=== PATIENT | female | born 1985 | race Caucasian/White ===

== ENCOUNTER 2020-12-13 02:28 | Inpatient (IN) | payer OTHER, SELFPAY ==
--- NOTE | ~2020-12-13 | US_ITS ---
EXAMINATION: US ABDOMEN LIMITED CLINICAL INFORMATION: RUQ/Epigastric Pain. COMPARISON: None TECHNIQUE: Real-time imaging of the right upper quadrant abdominal viscera. FINDINGS: PANCREAS: Normal. LIVER: The liver is normal in size. The liver contour is normal. Parenchymal echogenicity is normal. There is a 1.9 cm homogeneously echogenic focus in the right hepatic lobe superiorly and posteriorly, likely segment 7, most consistent with a hemangioma. There is no intrahepatic biliary duct dilatation seen. GALLBLADDER: A 2 cm calculus is impacted in the gallbladder neck. There is a second calculus measuring 1.6 cm is in diameter near the fundus. Gallbladder wall is borderline thickened (4 mm). There is mild focal tenderness in the region of the gallbladder, per the technologist. No pericholecystic fluid. COMMON BILE DUCT: Normal in caliber measuring 0.4 cm in diameter. RIGHT KIDNEY: Normal. No hydronephrosis. No renal calculi or focal parenchymal lesions. The kidney measures 10.6 cm in maximum dimension. FREE FLUID: None. US/US abdomen limited IMPRESSION: Cholelithiasis with an impacted stone at the bladder neck and borderline wall thickening. Given the presence of tenderness at the gallbladder, these findings are concerning for mild or early acute cholecystitis. A 1.9 cm hemangioma in the right hepatic lobe.
[2020-12-13 02:38] VITALS: BP 163/102; PULSE 68; RESP 18; TEMP 36.3; O2SAT 99; BMI 26.6
--- NOTE | 2020-12-13 03:34 | ED.ABDPAIN ---
HPI - Abdominal Pain General Chief Complaint: Abdominal Pain Stated Complaint: ABD pain/vomiting Time Seen by Provider: 12/13/20 03:33 Source: patient Mode of arrival: ambulatory History of Present Illness HPI narrative: 35-year-old female without significant past medical history presents with 2 weeks of consistent right upper quadrant / epigastric pain that typically starts at approximately 2:00 a.m. in the morning, crampy in nature, radiating between right upper quadrant and epigastric area associated with nausea and multiple episodes of nonbloody vomiting. Pain is rated as 10/10 and is worsened by laying back. Otherwise, she denies any fever, chills, diarrhea, urinary pain / burning/ frequency and is currently on her menstrual cycle. She denies any abdominal surgical history. Related Data Allergies Allergy/AdvReac Type Severity Reaction Status Date / Time No Known Allergies Allergy Verified 12/13/20 02:38 Review of Systems Review of Systems Pertinent positives and negatives as stated in HPI 10 point review of systems is otherwise negative. Physical Exam Vital Signs: Vital Signs: Last Vital Signs Temp 97.4 F 12/13/20 02:38 Pulse 68 12/13/20 02:38 Resp 18 12/13/20 02:38 BP 163/102 H 12/13/20 02:38 Pulse Ox 99 12/13/20 02:38 Body Mass Index 26.6 VITAL SIGNS: Reviewed. GENERAL: Well developed, well nourished, in no acute distress. HEAD: Normocephalic/atraumatic EYES: PERRLA, EOMI LUNGS: Normal breath sounds. No adventitious sounds or accessory muscle use. SpO2<99> CARDIOVASCULAR: Regular rate and rhythm without noted murmurs ABDOMEN: Soft, Pain on palpation at the right upper quadrant, Mccullough's positive, no rebound, non-distended with bowel sounds. SKIN: Inspection of the skin reveals no rashes, ulcerations, jaundice, pallor, or petechiae. NEUROLOGIC: Alert and oriented x 4. Strength and sensation to light touch were grossly intact x 4. Course Course Course Narrative: 35-year-old female with history and clinical presentation suggestive of possible cholecystitis, pancreatitis, and less likely renal colic/ pyelonephritis. On review of all investigations there is an impacted stone in the neck of the gallbladder, this case was discussed with the general surgeon who is agreeable for admission and patient was informed of all results and findings and understands that she will be admitted for plans of gallbladder removal. MDM - Abdominal Pain Lab Data Result diagrams: 12/13/20 04:06 12/13/20 04:06 Labs: Lab Results 12/13/20 12/13/20 12/13/20 Range/Units 04:06 04:06 04:06 WBC 9.2 (4.8-10.8) X10*3/uL RBC 3.94 L (4.20-5.50) X10*6/uL Hgb 12.7 (12.0-16.0) g/dl Hct 38.1 (37-47) % MCV 96.7 (80-98) fL MCH 32.2 (27.0-33.0) pg MCHC 33.3 (31.0-35.0) g/dl RDW 12.2 (11.0-16.0) % Plt Count 302 (160-400) X10*3/uL MPV 9.8 (9.4-12.3) fL Immature Gran % (Auto) 0.2 (0.0-0.4) % Neut % (Auto) 70.6 (45-73) % Lymph % (Auto) 22.5 (20-40) % [place] % (Auto) 4.6 (2-11) % Eos % (Auto) 1.2 (0-4) % Baso % (Auto) 0.9 (0-2) % Lymph # (Auto) 2.1 (1.2-4.9) X10*3/uL [place] # (Auto) 0.4 (0.1-1.2) X10*3/uL Eos # (Auto) 0.1 (0.0-0.4) X10*3/uL Baso # (Auto) 0.1 (0.0-0.2) X10*3/uL Abs Immat Gran (auto) 0.02 (0.00-0.03) X10*3/uL Absolute Neuts (auto) 6.5 (2.0-8.3) X10*3/uL Absolute Nucleated RBC 0.000 (0.0-0.012) X10*3/uL Nucleated RBC % (auto) 0.0 (0.0-0.2) /100WBC Hold Blue Top SEE NOTE Sodium 141 (135-145) mmol/L Potassium 3.9 (3.3-5.1) mmol/L Chloride 106 (96-108) mmol/L Carbon Dioxide 23 (22-29) mmol/L Anion Gap 16 (12-20) BUN 9 (9-16) mg/dL Creatinine 0.90 (0.5-1.4) mg/dL Estim Creat Clear Calc 86.2 Estimated GFR > 60 Random Glucose 109 (60-115) mg/dL Calcium 9.6 (8.4-10.2) mg/dL Total Bilirubin 0.5 (0.0-1.0) mg/dL AST 16 (5-31) U/L ALT 13 (0-31) U/L Alkaline Phosphatase 53 (39-117) U/L Total Protein 7.3 (6.5-8.0) g/dL Albumin 4.4 (3.5-5.0) g/dL Lipase 29 (8-78) U/L Urine Color Urine Appearance Urine pH (5.0-8.0) Ur Specific [place] (1.005-1.025) Urine Protein (NEG-TRACE) MG/DL Urine Glucose (UA) (NEG) MG/DL Urine Ketones (NEG) MG/DL Urine Blood (NEG) Urine Nitrite (NEG) Ur Leukocyte Esterase (NEG) Urine RBC (0) /HPF Urine WBC (0-4) /HPF Ur Squamous Epith Cells /LPF Urine Bacteria /LPF Urine Mucus /LPF Urine Test (NEGATIVE) 12/13/20 12/13/20 Range/Units 04:06 04:06 WBC (4.8-10.8) X10*3/uL RBC (4.20-5.50) X10*6/uL Hgb (12.0-16.0) g/dl Hct (37-47) % MCV (80-98) fL MCH (27.0-33.0) pg MCHC (31.0-35.0) g/dl RDW (11.0-16.0) % Plt Count (160-400) X10*3/uL MPV (9.4-12.3) fL Immature Gran % (Auto) (0.0-0.4) % Neut % (Auto) (45-73) % Lymph % (Auto) (20-40) % [place] % (Auto) (2-11) % Eos % (Auto) (0-4) % Baso % (Auto) (0-2) % Lymph # (Auto) (1.2-4.9) X10*3/uL [place] # (Auto) (0.1-1.2) X10*3/uL Eos # (Auto) (0.0-0.4) X10*3/uL Baso # (Auto) (0.0-0.2) X10*3/uL Abs Immat Gran (auto) (0.00-0.03) X10*3/uL Absolute Neuts (auto) (2.0-8.3) X10*3/uL Absolute Nucleated RBC (0.0-0.012) X10*3/uL Nucleated RBC % (auto) (0.0-0.2) /100WBC Hold Blue Top Sodium (135-145) mmol/L Potassium (3.3-5.1) mmol/L Chloride (96-108) mmol/L Carbon Dioxide (22-29) mmol/L Anion Gap (12-20) BUN (9-16) mg/dL Creatinine (0.5-1.4) mg/dL Estim Creat Clear Calc Estimated GFR Random Glucose (60-115) mg/dL Calcium (8.4-10.2) mg/dL Total Bilirubin (0.0-1.0) mg/dL AST (5-31) U/L ALT (0-31) U/L Alkaline Phosphatase (39-117) U/L Total Protein (6.5-8.0) g/dL Albumin (3.5-5.0) g/dL Lipase (8-78) U/L Urine Color YELLOW Urine Appearance HAZY Urine pH 6.0 (5.0-8.0) Ur Specific [place] <= 1.005 (1.005-1.025) Urine Protein NEG (NEG-TRACE) MG/DL Urine Glucose (UA) NEG (NEG) MG/DL Urine Ketones NEG (NEG) MG/DL Urine Blood 1+ H (NEG) Urine Nitrite NEG (NEG) Ur Leukocyte Esterase NEG (NEG) Urine RBC 1-4 (0) /HPF Urine WBC 0-2 (0-4) /HPF Ur Squamous Epith Cells 3+ /LPF Urine Bacteria NONE /LPF Urine Mucus TRACE /LPF Urine Test NEGATIVE (NEGATIVE) Discharge Plan Discharge Clinical Impression: Acute cholecystitis Patient Disposition: Admitted As Inpatient [facility] Past Medical History Source: nursing notes reviewed Social History Social History Advance Directives: No Advance Directives Information Provided: No
[2020-12-13] MEDS: Acetaminophen 325 MG TABLET 975 MG PO (03:59)
[2020-12-13] MEDS: Ketorolac Tromethamine 15 MG/ML VIAL IVPUSH (03:59)
[2020-12-13] MEDS: ondansetron HCL 4 MG/2 ML VIAL IVPUSH (03:59)
[2020-12-13] MEDS: 0.9 % Sodium Chloride 1,000 ML 999 ML IV (04:05)
[2020-12-13 04:15] LABS: MANUAL DIFF FLAG NO
[2020-12-13 04:16] LABS: Basophils Absolute Auto 0.1 X10*3/uL (0.0-0.2); Basophils Percent Auto 0.9 % (0-2); Eosinophils Absolute Auto 0.1 X10*3/uL (0.0-0.4); Eosinophils Percent Auto 1.2 % (0-4); Hematocrit 38.1 % (37-47); Hemoglobin 12.7 g/dl (12.0-16.0); Imm Gran Abs Auto 0.02 X10*3/uL (0.00-0.03); Imm Gran Pct Auto 0.2 % (0.0-0.4); Lymphocytes Absolute Auto 2.1 X10*3/uL (1.2-4.9); Lymphocytes Percent Auto 22.5 % (20-40); Mean Corpuscular HGB Conc 33.3 g/dl (31.0-35.0); Mean Corpuscular Hemoglobin 32.2 pg (27.0-33.0); Mean Corpuscular Volume 96.7 fL (80-98); Mean Platelet Volume 9.8 fL (9.4-12.3); Monocytes Absolute Auto 0.4 X10*3/uL (0.1-1.2); Monocytes Percent Auto 4.6 % (2-11); Neutrophils Absolute Auto 6.5 X10*3/uL (2.0-8.3); Neutrophils Percent Auto 70.6 % (45-73); Platelet Count 302 X10*3/uL (160-400); Red Blood Count 3.94 X10*6/uL (4.20-5.50); Red Cell Distribution Width 12.2 % (11.0-16.0); White Blood Count 9.2 X10*3/uL (4.8-10.8)
[2020-12-13 04:25] LABS: Glucose Urine UA NEG (NEG); Leukocyte Esterase Urine NEG (NEG); Nitrite Urine NEG (NEG); Specific Gravity - Urine <= 1.005 (1.005-1.025); Urine Blood 1+ (NEG); Urine Ketones NEG (NEG); Urine Protein NEG (NEG-TRACE)
[2020-12-13 04:28] LABS: Appearance Urine HAZY; Color Urine YELLOW; UPreg QC Valid YES; Urine Pregnancy NEGATIVE (NEGATIVE)
[2020-12-13 04:39] LABS: Alanine Aminotransferase 13 U/L (0-31); Albumin Level 4.4 g/dL (3.5-5.0); Alkaline Phosphatase 53 U/L (39-117); Anion Gap 16 (12-20); Aspartate Amino Transferase 16 U/L (5-31); Bilirubin Total 0.5 mg/dL (0.0-1.0); Blood Urea Nitrogen 9 mg/dL (9-16); Calcium 9.6 mg/dL (8.4-10.2); Carbon Dioxide 23 mmol/L (22-29); Chloride 106 mmol/L (96-108); Creatinine Clr Calc Pharmacy 86.2; Estimated Glomerular Filt Rate > 60; Glucose Random 109 mg/dL (60-115); Lipase 29 U/L (8-78); Potassium 3.9 mmol/L (3.3-5.1); Sodium 141 mmol/L (135-145); Total Protein 7.3 g/dL (6.5-8.0)
[2020-12-13 05:02] LABS: Mucus Urine TRACE /LPF; Squamous Epithelial Cell Urine 3+ /LPF; WBC Urine 0-2 /HPF (0-4)
[2020-12-13 05:48] VITALS: BP 126/76; PULSE 73; RESP 16; O2SAT 97
[2020-12-13 06:12] LABS: COVID-19 Test Negative (Negative)
--- NOTE | 2020-12-13 06:30 | PC.NURSE ---
REPORT FROM ARJUN AT 05:30.
[2020-12-13 06:59] VITALS: BP 119/67; PULSE 65; RESP 18; O2SAT 98
[2020-12-13] MEDS: Dextrose 5 % and Lactated Ring 1,000 ML 125 ML IVCONT (07:02)
--- NOTE | 2020-12-13 07:05 | PC.NURSE ---
PT RESTING IN THE STRETCHER, DENIES PAIN/NAUSEA AT THIS. PT AWARE OF PLAN TO ADMI AND NPO WELL. ABX RUNNING BUT THE DETROSE 5% LR FLUIDS ARE NOT RUNNING AT THIS TIME BECAUSE IT IS NOT COMPATIBLE WITH THE ABX
[2020-12-13] MEDS: Piperacillin Sodium/Tazobactam 3.375 GM in 0.9 % Sodium Chloride 50 ML IV (07:07)
[2020-12-13] MEDS: 0.9 % Sodium Chloride Flush 3 ML SYRINGE IVFLUSH (07:58)
--- NOTE | 2020-12-13 08:49 | P.CONGS_ITS ---
History of Present Illness Consult details Consult date: 12/13/20 Narrative: 35F otherwise healthy, came to the ED around 2 AM because of upper abdominal pain. She states this was severe and started around midnight. She says she had a heavy meal of fatty food from [employer] last night which she normally does not eat. She describes some nausea from the pain without vomitting. She denies any previous similar problems. She says the pain lasted about 2 hours. She currently says she is pain free. She denies other GI complaints. Review of Systems Constitutional: Constitutional: Denies chills and Denies fever(s) Cardiovascular: Cardiovascular: Denies chest pain, Denies dyspnea and Denies dyspnea on exertion Respiratory: Respiratory: Denies cough, Denies dyspnea and Denies dyspnea on exertion Gastrointestinal: Gastrointestinal: Denies hematochezia and Denies change in bowel habits Genitourinary: Genitourinary: Denies hematuria Musculoskeletal: Musculoskeletal: Denies back pain and Denies limited range of motion Neurologic: Denies focal weakness and Denies convulsions Psychiatric: Psychiatric: Denies depression and Denies mood swings [facility] Past Medical History Medical History (Updated 12/21/20 @ 00:01 by Andrea Watson) Gallstones No active medical problems Social History Social History Patient Tobacco Use Status: Former Tobacco user Use of substances other than those prescribed or required for medical reasons: Yes Substance Use Type: Marijuana Substance Use Frequency: Daily Advance Directives: No Advance Directives Information Provided: No Meds Allergies Allergy/AdvReac Type Severity Reaction Status Date / Time No Known Allergies Allergy Verified 12/13/20 02:38 Active Medications: Current Medications Generic Name Dose Route Start Last Admin Trade Name Freq PRN Reason Stop Dose Admin Hydromorphone HCl 0.5 mg 12/13/20 06:26 Hydromorphone Hcl 0.5 Mg/0.5 Ml Syringe IVPUSH Q4H PRN Pain, Severe (Pain Scale 7-10) Acetaminophen 1,000 mg in 100 mls @ 400 mls/hr 12/13/20 07:00 12/13/20 07:57 Ofirmev IV Not Given Q6H SWATHI Dextrose/Lactated Ringer's 1,000 mls @ 125 mls/hr 12/13/20 06:26 12/13/20 07:02 D5lr IVCONT 125 mls/hr .Q8H SWATHI Administration Piperacillin Sod/Tazobactam 50 mls @ 100 mls/hr 12/13/20 07:00 12/13/20 07:54 Sod 3.375 gm/ Sodium Chloride IV Infused Q6H SWATHI Infusion Ondansetron HCl 4 mg 12/13/20 06:26 Ondansetron Hcl 4 Mg/2 Ml Vial IVPUSH QID PRN Nausea Oxycodone HCl 5 mg 12/13/20 06:26 Oxycodone Hcl Immed Release 5 Mg Tablet PO Q6H PRN Pain, Moderate (Pain Scale 4-6 Sodium Chloride 3 ml 12/13/20 08:00 12/13/20 07:58 0.9 % Sodium Chloride Flush 3 Ml Syringe IVFLUSH 3 ml QSHIFT SWATHI Administration Zolpidem Tartrate 5 mg 12/13/20 06:26 Zolpidem Tartrate 5 Mg Tablet PO BEDTIME PRN Insomnia Home Medications Medication Instructions Recorded Confirmed Last Taken Type No Known Home Meds 12/13/20 12/13/20 Unknown History Physical Exam Vital Signs: Vital Signs: Last Vital Signs Temp 97.4 F 12/13/20 02:38 Pulse 65 12/13/20 06:59 Resp 18 12/13/20 06:59 BP 119/67 12/13/20 06:59 Pulse Ox 98 12/13/20 06:59 Body Mass Index 26.6 Const: General: comfortable and no acute distress Orientation/consciousness: patient oriented x3 Neck: Neck: Yes no lymphadenopathy Resp: Auscultation: clear to auscultation bilaterally Cardio: Rhythm: regular rhythm GI: Other: no Mccullough's sign Palpation (GI): Soft to palpation, nontender and no guarding Neuro: General: patient oriented x3 Results Labs Result diagrams: 12/13/20 04:06 12/13/20 04:06 Labs: Abnormal lab results 12/13/20 12/13/20 Range/Units 04:06 04:06 RBC 3.94 L (4.20-5.50) X10*6/uL Urine Blood 1+ H (NEG) Short CBC 12/13/20 Range/Units 04:06 WBC 9.2 (4.8-10.8) X10*3/uL Hgb 12.7 (12.0-16.0) g/dl Hct 38.1 (37-47) % Plt Count 302 (160-400) X10*3/uL BMP 12/13/20 04:06 Sodium 141 Potassium 3.9 Chloride 106 Carbon Dioxide 23 BUN 9 Creatinine 0.90 Calcium 9.6 Liver Function 12/13/20 Range/Units 04:06 Total Bilirubin 0.5 (0.0-1.0) mg/dL AST 16 (5-31) U/L ALT 13 (0-31) U/L Alkaline Phosphatase 53 (39-117) U/L Albumin 4.4 (3.5-5.0) g/dL Urine 12/13/20 12/13/20 Range/Units 04:06 04:06 Urine Color YELLOW Urine Appearance HAZY Urine pH 6.0 (5.0-8.0) Ur Specific [place] <= 1.005 (1.005-1.025) Urine Protein NEG (NEG-TRACE) MG/DL Urine Glucose (UA) NEG (NEG) MG/DL Urine Test NEGATIVE (NEGATIVE) All other labs normal. Imaging Abdominal ultrasound report/results: report reviewed and image reviewed Assessment and Plan (1) Gallstones: Status: Acute She came in with severe upper abdominal pain this morning. Her US shows a gallstone that may be impacted at the neck. She says has been pain free since getting pain meds at 2 a.m. She is not tender on exam. She does not have le ukocytosis and her LFTs are within normal. I explained to her that her pain episode was likely from her gallstone. I discussed with her the option of proceeding with cholecystectomy. I explained the technique of laparoscopic cholecystectomy and open cholecystectomy. I reviewed the risks including but not limited to bleeding, infections, injury to bowel/liver/bile ducts, as well as the benefits and alternatives. She states she does not want to proceed with surgery at this time. She stated that she wanted to be discharged home as she is completely pain free. After a lengthy discussion, I was able to convince her to stay to be observed as she may have recurrence of pain immediately even if her overall clinical picture does not strongly suggest cholecystitis. I told her that she may still have episodes of pain from her gallbladder. She says she understands but states may decide to have surgery in the future if she feels she has recurrent issues. I will start her on clear liquids and reexamine her later today.
--- NOTE | 2020-12-13 09:32 | PC.NURSE ---
pt reports that hse wants to go home, does not want to be admitted. this rn triggered dr perez about this imformation
--- NOTE | 2020-12-13 09:40 | PM.EVENT ---
Event Note Date of Service: 12/13/20 Event Note: informed by ED staff that pt wanted to leave I explained possible consequences to pt - recurrent pain, cholecystitis she says she is completely pain free she says she will ffup in office she says she understands implications of her decision
--- NOTE | 2020-12-13 10:25 | MHC.CM.PN ---
Patient left AMA before being seen by case management.
--- NOTE | 2020-12-17 09:52 | PM.DS ---
DS: Providers Provider Date of Service: 12/13/20 Date of admission: 12/13/20 05:37 Primary care physician: Unknown Physician DS: Diagnosis Discharge Diagnosis (1) Gallstones: Status: Acute DS: Medications Discharge Medications Home Medications: Home Medications Medication Instructions Recorded Confirmed No Known Home Meds 12/13/20 12/13/20 DS: Summary Hospital Course Hospital Course: [age] year female admitted in the ER for gallstones on 12/13/2020. She had described pain on the right a upper quadrant and epigastric area. However, in the ER, when seen by myself, she stated that she wanted to leave against medical advice. She was completely asymptomatic at the time. She refused admission for a question of cholecystitis with a gallstone in the neck of the gallbladder. She understood the implications of her decision then. Time Spent with Patient Time attestation: Total time spent providing and/or coordinating discharge services: Discharge coordination time: Less than 30 minutes Quality: Stroke Does the patient have a stroke diagnosis?: No Physical Exam Vital Signs: Vital Signs: Last Vital Signs Temp 97.4 F 12/13/20 02:38 Pulse 65 12/13/20 06:59 Resp 18 12/13/20 06:59 BP 119/67 12/13/20 06:59 Pulse Ox 98 12/13/20 06:59 Body Mass Index 26.6 Const: General: comfortable and no acute distress Orientation/consciousness: patient oriented x3 Neck: Neck: Yes no lymphadenopathy Resp: Auscultation: clear to auscultation bilaterally Cardio: Rhythm: regular rhythm GI: Palpation (GI): Soft to palpation, nontender and no guarding Neuro: General: patient oriented x3 Discharge Plan Discharge Patient Disposition: Left Against Medical Advice Discharge Diagnosis: gallstones Referrals: Physician,Unknown [Primary Care Provider] - 1 Week Discharge Medications: No Action No Known Home Meds RF: 0 Discharge Orders: Discharge Order (Routine); Ordered 12/13/20 Ordered By: Paul Galvez Diet: low fat, low cholesterol Activity Restrictions/Additional Instructions: call office for ffup - [phone] low fat diet Care Plan Goals: ffup for gallbladder problems Health Concerns: gallstones Plan of Treatment: she say she will ffup as outpt Assessment: stable, asymptomatic Discharge Date/Time: 12/13/20 09:59
--- NOTE | 2020-12-24 12:47 | PM.HPGS ---
History of Present Illness History of Present Illness Date of Service: 12/24/20 Chief complaint: Acute Cholecystitis Narrative: 35F otherwise healthy, came to the ED around 2 AM because of upper abdominal pain. She states this was severe and started around midnight. She says she had a heavy meal of fatty food from [employer] last night which she normally does not eat. She describes some nausea from the pain without vomitting. She denies any previous similar problems. She says the pain lasted about 2 hours. She currently says she is pain free. She denies other GI complaints. Review of Systems Constitutional: Constitutional: Denies chills and Denies fever(s) Cardiovascular: Cardiovascular: Denies chest pain, Denies dyspnea and Denies dyspnea on exertion Respiratory: Respiratory: Denies cough, Denies dyspnea and Denies dyspnea on exertion Gastrointestinal: Gastrointestinal: Denies hematochezia and Denies change in bowel habits Genitourinary: Genitourinary: Denies hematuria Musculoskeletal: Musculoskeletal: Denies back pain and Denies limited range of motion Neurologic: Denies focal weakness and Denies convulsions Psychiatric: Psychiatric: Denies depression and Denies mood swings [facility] Past Medical History Medical History (Updated 12/21/20 @ 00:01 by Andrea Watson) Gallstones No active medical problems Social History Social History Patient Tobacco Use Status: Former Tobacco user Use of substances other than those prescribed or required for medical reasons: Yes Substance Use Type: Marijuana Substance Use Frequency: Daily Advance Directives: No Advance Directives Information Provided: No Meds Allergies Allergy/AdvReac Type Severity Reaction Status Date / Time No Known Allergies Allergy Verified 12/13/20 02:38 Home Medications Medication Instructions Recorded Confirmed Last Taken Type No Known Home Meds 12/13/20 12/13/20 Unknown History Physical Exam Vital Signs: Vital Signs: Last Vital Signs Temp 97.4 F 12/13/20 02:38 Pulse 65 12/13/20 06:59 Resp 18 12/13/20 06:59 BP 119/67 12/13/20 06:59 Pulse Ox 98 12/13/20 06:59 Body Mass Index 26.6 Const: General: comfortable and no acute distress Orientation/consciousness: patient oriented x3 Neck: Neck: Yes no lymphadenopathy Resp: Auscultation: clear to auscultation bilaterally Cardio: Rhythm: regular rhythm GI: Other: no Mccullough's sign Palpation (GI): Soft to palpation, nontender and no guarding Neuro: General: patient oriented x3 Results Results Labs: Hg 12.7 WBC 9.2 Na 141 K 3.9 BUN/Crea 9/.9 bili 0.5 AST/ALT 16/13 alk phos 53 US - gallstone at the neck Urine 12/13/20 12/13/20 Range/Units 04:06 04:06 Urine Color YELLOW Urine Appearance HAZY Urine pH 6.0 (5.0-8.0) Ur Specific [place] <= 1.005 (1.005-1.025) Urine Protein NEG (NEG-TRACE) MG/DL Urine Glucose (UA) NEG (NEG) MG/DL Urine Test NEGATIVE (NEGATIVE) Assessment and Plan (1) Gallstones: Status: Acute She came in with severe upper abdominal pain this morning. Her US shows a gallstone that may be impacted at the neck. She says has been pain free since getting pain meds at 2 a.m. She is not tender on exam. She does not have leukocytosis and her LFTs are within normal. I explained to her that her pain episode was likely from her gallstone. I discussed with her the option of proceeding with cholecystectomy. I explained the technique of laparoscopic cholecystectomy and open cholecystectomy. I reviewed the risks including but not limited to bleeding, infections, injury to bowel/liver/bile ducts, as well as the benefits and alternatives. She states she does not want to proceed with surgery at this time. She stated that she wanted to be discharged home as she is completely pain free. After a lengthy discussion, I was able to convince her to stay to be observed as she may have recurrence of pain immediately even if her overall clinical picture does not strongly suggest cholecystitis. I told her that she may still have episodes of pain from her gallbladder. She says she understands but states may decide to have surgery in the future if she feels she has recurrent issues. I will start her on clear liquids and reexamine her later today. Quality Stroke Does the patient have a stroke diagnosis?: No VTE Prior VTE?: No VTE Risk Level:: Surgical - low VTE Device Contraindication: N/A - Device Ordered VTE Drug Contraindication: Treatment Not Indicated Procedures Date of Service Date of Service: 12/13/20
== END 2020-12-13 09:59 | disposition left against medical advice (07) ==
LOC: HO.ED 05:34 → HO.EDOVER 06:27
PROVIDERS: Admitting Provider Internal Medicine; Emergency Provider Student in an Organized Health Care Education/Training Program; Visit Provider Internal Medicine
DX: K80.01 Calculus of gallbladder with acute cholecystitis with obstruction (principal); Z20.822 Contact with and (suspected) exposure to COVID-19; Z87.891 Personal history of nicotine dependence
CPT/HCPCS: 36415; 76705; 80053; 81001; 81025; 83690; 85025; 87635; 99219; 99284; J1885; J2405; J2543